=== PATIENT | male | born 1975 | race Caucasian/White ===

== ENCOUNTER 2019-07-29 12:31 | Emergency (ER) | payer MEDICAID ==
[~2019-07-29] VITALS: Ht 177.8 cm; Wt 102.1 kg
[2019-07-29 12:51] VITALS: Ht 177.8 cm; Wt 102.1 kg
[2019-07-29 15:19] LABS: CALCIUM 8.5 mg/dL (8.5-10.1); CARBON DIOXIDE 30.5 mmol/L (21-32); CHLORIDE SERUM 106 mmol/L (98-107); CREATININE SERUM 0.8 mg/dL (0.7-1.3); GFR1 > 60 mL/min; GLUCOSE SERUM 103 mg/dL (74-106); SODIUM SERUM 143 mmol/L (136-145)
[2019-07-29 15:38] LABS: UA SPECIFIC GRAVITY 1.015 (1.005-1.035); microscopic required? YES; urine erythrocyte NEGATIVE (NEGATIVE)
[2019-07-29 17:17] VITALS: BP 142/92
== END 2019-07-29 17:17 | disposition home or self-care (01) ==
LOC: ED 12:31
PROVIDERS: Emergency Medicine
DX: R60.0 Localized edema (principal); R22.41 Localized swelling, mass and lump, right lower limb; R22.42 Localized swelling, mass and lump, left lower limb; Z59.0 Homelessness
CPT/HCPCS: 36415